=== PATIENT | female | born 1960 | race Caucasian/White ===

== ENCOUNTER → 2018-08-11 | Outpatient (CLI) | payer MEDICARE, OTHER ==
[~2018-08-11] MED LIST: Adipex-P37.5 MG; BIOTIN-D1 GM; Bactrim Ds Tab1 EACH PO; CALCAVITDA; CENTRUM SILVER1 EAC3; CYCL10 PO; ESTROVEN 155 M155 MG; FURO20; GLUCOSAMINE CH1 EAC1; IBUP600; IBUP600 PO; Keflex500 MG PO; MEGARED OMEGA-1 EAC1; PROBIOTIC1 EAC1; Percocet 5-3251 EACH PO; Potassium99 MG
== END | disposition home or self-care (01) ==
LOC: LAB SHORT 15:12 → PLD 15:12
DX: A63.0 Anogenital (venereal) warts (principal)
CPT/HCPCS: 88305

== ENCOUNTER → 2018-12-16 | Outpatient (CLI) | payer MEDICARE, OTHER ==
[2018-12-16 12:19] LABS: Source, Urine Clean Catch
[2018-12-16 15:39] LABS: Bilirubin, Urine Neg (Neg); Blood, Urine 1+ (Neg); Glucose Qualitative, Urine Neg (Neg); Ketones, Urine Neg (Neg); Leukocyte Esterase, Urine 1+ (Neg); Nitrite, Urine Neg (Neg); Protein, Urine Neg (Neg); Urobilinogen, Urine NORM (Normal)
[2018-12-16 15:55] LABS: Appearance, Urine Turbid (Clear); Color, Urine Yellow (P-Yellow)
[2018-12-16 15:57] LABS: Amorphous Heavy (0-Heavy); Bacteria Few /hpf; Red Blood Cells, Urine 0-2 /hpf (0-2); Squamous Epithelial Cells Mod /hpf (Few)
== END | disposition home or self-care (01) ==
LOC: LAB 12:08 → LAB SHORT 12:08
PROVIDERS: Obstetrics & Gynecology
DX: R30.0 Dysuria (principal)
CPT/HCPCS: 81001

== ENCOUNTER → 2019-09-21 | Outpatient (CLI) | payer MEDICARE, OTHER | END | disposition home or self-care (01) | LOC: LAB SHORT 10:55 → LAB UCHC 10:55 | DX: R07.0 Pain in throat (principal) | CPT/HCPCS: 87081; 87147 ==

== ENCOUNTER → 2020-07-18 | Outpatient (CLI) | payer MEDICARE, OTHER ==
[2020-07-18 12:16] LABS: Source, Urine Clean Catch
[2020-07-18 13:52] LABS: Bacteria Few /hpf; Mucus Light (0-Heavy); Red Blood Cells, Urine Not Seen /hpf (0-2); Squamous Epithelial Cells Mod /hpf (Few); White Blood Cells, Urine 0-2 /hpf (0-5)
[2020-07-19 10:56] LABS: Candida species (DNA Probe) Negative (NEGATIVE); G. vaginalis (DNA Probe) Positive (NEGATIVE); T. vaginalis (DNA Probe) Negative (NEGATIVE)
== END | disposition home or self-care (01) ==
LOC: LAB SHORT 11:24
PROVIDERS: Advanced Practice Midwife
DX: N76.0 Acute vaginitis (principal); R30.0 Dysuria
CPT/HCPCS: 81015; 87086; 87480; 87510; 87660

== ENCOUNTER → 2021-01-26 | Outpatient (CLI) | payer MEDICARE, OTHER ==
[2021-01-30 15:10] LABS: HPV 16 Negative (Negative); HPV 18 Negative (Negative); HPV OTHER HR TYPES Negative (Negative)
== END | disposition home or self-care (01) ==
LOC: LAB SHORT 09:45
PROVIDERS: Obstetrics & Gynecology
DX: Z01.419 Encounter for gynecological examination (general) (routine) without abnormal findings (principal)
CPT/HCPCS: 87624; G0123

== ENCOUNTER → 2021-03-22 | Outpatient (CLI) | payer MEDICARE, OTHER | END | disposition home or self-care (01) | LOC: LAB 13:24 → LAB SHORT 13:24 | DX: A63.0 Anogenital (venereal) warts (principal) | CPT/HCPCS: 88305 ==

== ENCOUNTER 2022-12-24 13:30 | Inpatient (IN) | payer MEDICARE, OTHER ==
[2022-12-24] VITALS (13 sets, daily range): BP systolic 106–184; BP diastolic 59–82
[~2022-12-24] VITALS: Ht 160 cm; Wt 151.0 kg
[~2022-12-24 13:30] MED LIST changes: +CVS SPECTRAVIT1 EA12 PO; +POTA10T PO; +Prinivil10 MG PO
[2022-12-24 15:33] LABS: BASOPHILS ABSOLUTE AUTO 0.03 K/mm3 (0.00-0.23); BASOPHILS PERCENT AUTO 1 % (0-2); EOSINOPHILS ABSOLUTE AUTO 0.06 K/mm3 (0.00-0.68); EOSINOPHILS PERCENT AUTO 1 % (0-6); Hematocrit 40.4 % (33.0-51.0); Hemoglobin 13.2 g/dL (11.5-16.0); IMMATURE GRAN ABSOLUTE AUTO 0.01 K/mm3 (0.00-0.10); IMMATURE GRAN PERCENT AUTO 0 % (0-1); LYMPHOCYTES ABSOLUTE AUTO 1.52 K/mm3 (0.84-5.20); LYMPHOCYTES PERCENT AUTO 27 % (21-46); MONOCYTES ABSOLUTE AUTO 0.45 K/mm3 (0.16-1.47); MONOCYTES PERCENT AUTO 8 % (4-13); Mean Corpuscular HGB 29.7 pg (26.0-34.0); Mean Corpuscular HGB Conc 32.7 g/dL (31.5-36.5); Mean Corpuscular Volume 91 fL (80-100); NEUTROPHILS ABSOLUTE AUTO 3.47 K/mm3 (1.96-9.15); NEUTROPHILS PERCENT AUTO 63 % (41-73); Platelet Count 254 K/mm3 (150-400); RDW Standard Deviation 46.5 fL (35.1-46.3); Red Blood Cell Count 4.44 M/mm3 (3.80-5.20); White Blood Cell Count 5.54 K/mm3 (4.00-11.30)
[2022-12-24 16:04] LABS: Albumin, Blood 3.5 g/dL (3.4-5.0); Albumin/Globulin Ratio 0.9 (0.8-1.8); Bilirubin, Total 0.5 mg/dL (0.1-1.0); Bun/Creatinine Ratio 17.7 (12.0-20.0); Calcium, Blood 9.3 mg/dL (8.5-10.1); Creatinine, Blood 0.85 mg/dL (0.40-1.00); Globulin, Blood 4.1 g/dL (2.2-4.0); Potassium, Blood 4.1 mmol/L (3.5-5.5); Total Protein, Blood 7.6 g/dL (6.4-8.2)
[2022-12-24 16:25] LABS: Thyroid Stimulating Hormone 2.16 uIU/mL (0.360-4.800)
--- NOTE | 2022-12-24 18:48 | NUR ---
PT ARRIVAL... PT ARRIVED TO THE UNIT AT 1740. PT IS ADMITTED WITH 3RD DEGREE HB WITH RATE IN THE HIGH 30'S (36-38). PT'S BP IS STABLE WITH SBPs IN THE 150'S-170'S. PT DENIES ANY CHEST PAIN/PRESSURE SOB OR N/V. PT DOES C/O OF A HEADACHE AND FATIGUE. PT IS A&Ox4. PT IS ON RA WITH O2 SATS >95% L/S CLEAR T/O. BT PRESENT AND NORMOACTIVE. PT HAS LYMPHEDEMA TO HER BLE, PT C/O OF PAIN TO HER BLE MORE ON THE RIGHT THAN THE LEFT. PUREWICK PLACED. PLAN IS FOR PT TO GET A PACER IN THE AM UNLESS THE PT BECOMES UNSTABLE THEN DR. DOOLEY WILL PLACE THE PACER TONIGHT. CALL LIGHT IN REACH WILL CONTINUE TO MONITOR UNTIL REPORT IS GIVEN TO THE ONCOMING RN.
[2022-12-25] VITALS (37 sets, daily range): BP systolic 91–185; BP diastolic 52–102
[2022-12-25 04:40] LABS: BASOPHILS ABSOLUTE AUTO 0.02 K/mm3 (0.00-0.23); BASOPHILS PERCENT AUTO 0 % (0-2); EOSINOPHILS PERCENT AUTO 2 % (0-6); Hematocrit 37.3 % (33.0-51.0); Hemoglobin 12.1 g/dL (11.5-16.0); IMMATURE GRAN ABSOLUTE AUTO 0.01 K/mm3 (0.00-0.10); IMMATURE GRAN PERCENT AUTO 0 % (0-1); LYMPHOCYTES ABSOLUTE AUTO 1.75 K/mm3 (0.84-5.20); LYMPHOCYTES PERCENT AUTO 38 % (21-46); MONOCYTES ABSOLUTE AUTO 0.41 K/mm3 (0.16-1.47); MONOCYTES PERCENT AUTO 9 % (4-13); Mean Corpuscular HGB 29.2 pg (26.0-34.0); Mean Corpuscular HGB Conc 32.4 g/dL (31.5-36.5); Mean Corpuscular Volume 90 fL (80-100); Mean Platelet Volume 10.4 fL (9.1-12.4); NEUTROPHILS ABSOLUTE AUTO 2.31 K/mm3 (1.96-9.15); NEUTROPHILS PERCENT AUTO 50 % (41-73); Platelet Count 248 K/mm3 (150-400); RDW Coefficient Variation 13.9 % (11.7-14.2); RDW Standard Deviation 45.9 fL (35.1-46.3); Red Blood Cell Count 4.15 M/mm3 (3.80-5.20)
[2022-12-25 04:47] LABS: Creatinine, Blood 0.79 mg/dL (0.40-1.00); Potassium, Blood 3.7 mmol/L (3.5-5.5)
--- NOTE | 2022-12-25 06:40 | NUR ---
PATIENT AOX4. 3RD DEGREE HEART BLOCK. HYPERTENSIVE WITH SYS 140-170. ROOM AIR. NPO SINCE 0000. PUREWICK IN PLACE.
--- NOTE | 2022-12-25 11:27 | NUR ---
ASSUMED CARE OF PATIENT.
--- NOTE | 2022-12-25 12:13 | NUR ---
JIMI HAS BEEN RESTING ON AND OFF THROUGHOUT THE MORNING. SHE WAS GIVEN THE HIBICLENS BATH PER ORDER. SHE IS ABLE TO HELP ASSIST WITH SOME MOVEMENT. SHE IS UNABLE TO MOVE HER LEGS OR BEND HER KNEES R/T THE LYMPHEDEMA. SHE IS USING THE PUREWICK, WHICH SHE HAS BEEN CLEANED/BATHED AND A NEW DEVICE PLACED. SHE CONTINUES ON 100ML/HR OF NS. SHE IS COMMUNICATING USING HER OWN CELL PHONE. SHE HAS C/O HEADACHE WITH HER INCREASE IN BLOOD PRESSURE. SHE SAYS THIS IS NOT NEW. THE TYLENOL HAS STARTED TO HELP SOME. PT CONTINUES TO BE IN COMPLETE HEART BLOCK WITH RATE IN THE 30'S.
--- NOTE | 2022-12-25 18:14 | NUR ---
END OF SHIFT SUMMARY: NEURO: A&OX4. WEAK IN THE EXTREMITIES AT BASILINE. PERRLA. RESP: LUNG SOUNDS CLEAR THROUGHOUT. CARDIO: PT IS AN BRADYCARDIC IN THE 30'S WITH A 3RD DEGREE HEART BLOCK AND HYPERTENSIVE. PT WENT TO CERTIFIED NURSE THIS AFTERNOON FOR PACEMAKER PLACEMENT. GI: NO BM TODAY : PUREWICK IN PLACE DUE TO PT BEING ON BEDREST. SKIN: NO NEW SKIN BREAKDOWN. LINES: 20G IV IN RAC, POWERGLIDE IRVING.
--- NOTE | 2022-12-25 21:12 | NUR ---
ASSESSMENT/ASSUMED CARE PT ARRIVED BACK FROM [facility] AT 2022 VIA BED. PT AWAKE A&O. REPOSITIONED AND NEW PURWICK PLACED. LEFT CHEST WALL DRSG INTACT, NO BLEEDING NOTED. RECEIVED ORDERS FROM DR DOUGHERTY. PT C/O NECK PAIN 11/04 "PULLING". LUNGS CLEAR BUT DECREASED ON ROOMAIR. RESP EVEN AND NONLABORED. SPO2 GREATER THAN 90. HEART RATE 100% PACED WITH A RATE IN THE 80'S. BT+ DENIES N/V. REQUESTING FOOD. "I DIDN'T GET TO EAT DINNER". PT ON CARDIAC DIET WITH BRING FOOD. 4+ EDEMA TO LOWER EXT. PT USING PHONE TO CALL FAMILY. SLING PLACED TO LEFT ARM AND REMINDED PT NOT TO RAISE ARM ABOVE SHOULDER OR SHE COULD DISPLACE PACER LEADS. PT EXPRESSED UNDERSTANDING. POWER GLIDE TO LEFT UPPER ARM NS RESTARTED AT 100 ML/HR. SITE CLEAR, UNABLE TO DRAW BLOOD, FLUSHES WITHOUT DIFFICULTY. IV TO RIGHT AC SALINE LOCKED, SITE CLEAR.
[2022-12-26] VITALS (19 sets, daily range): BP systolic 130–169; BP diastolic 61–98
--- NOTE | 2022-12-26 00:10 | NUR ---
PT RESTING QUIELTY. MOVING SELF AROUND IN BED WITH MIN ASSIST. LEFT CHEST WALL SITE CLEAR, NO BLEEDING NOTED. PT DENIES PAIN OR DISCOMFORT.
--- NOTE | 2022-12-26 06:08 | NUR ---
SHIFT SUMMARY PT AWAKE SITTING UP IN BED PLAYING GAMES ON PHONE. C/O PAIN 02/03 "ALL OVER". REFUSING FENTANYL STATES,"IT'S BETTER THAN IT WAS, I'LL WAIT UNTIL I CAN HAVE TYLENOL AGAIN". LEFT CHEST WALL SITE STABLE, NO BLEEDING. VSS. POSSIBLE STATUS CHANGE OR DISCHARGE TO HOME TODAY. REPORT TO ON COMING NURSE
--- NOTE | 2022-12-26 07:16 | NUR ---
ASSUMED CARE OF PATIENT.
[2022-12-26] MEDS ORDERED: ACET325 PO (11:42)
[2022-12-26] MEDS ORDERED: METO50ER PO (11:44)
[2022-12-26] MEDS ORDERED: VISBIOME 112.51 EACH PO (11:45)
[2022-12-26] MEDS ORDERED: CEPH500 PO (11:46)
--- NOTE | 2022-12-26 13:31 | NUR ---
DISCHARGE SUMMARY: WENT OVER DISCHARGE WITH PATIENT. ANY QUESTIONS AND CONCERNS WERE ADDRESSES. LINES WERE PULLED AND PT WAS ASSISTED WITH GETTING DRESSES. PT WAS TRANSPORTED TO CAR VIS WHEEL CHAIR. PTS WAS ASSISTED INTO THE CAR WHICH WAS DRIVEN BY HER FRIEND.
== END 2022-12-26 13:30 | disposition home or self-care (01) | DRG 243 ==
LOC: ER 13:30 → ICUW 13:31
PROVIDERS: Emergency Medicine; Student in an Organized Health Care Education/Training Program; ADMIT Student in an Organized Health Care Education/Training Program
PROC: 0JH606Z Insertion of Pacemaker, Dual Chamber into Chest Subcutaneous Tissue and Fascia, Open Approach (ICD-10-PCS; principal; 2022-12-25)
PROC: 02H63JZ Insertion of Pacemaker Lead into Right Atrium, Percutaneous Approach (ICD-10-PCS; 2022-12-25)
PROC: 02HK3JZ Insertion of Pacemaker Lead into Right Ventricle, Percutaneous Approach (ICD-10-PCS; 2022-12-25)
DX: I44.2 Atrioventricular block, complete (principal); Z68.43 Body mass index [BMI] 50.0-59.9, adult; I10 Essential (primary) hypertension; E66.01 Morbid (severe) obesity due to excess calories; I89.0 Lymphedema, not elsewhere classified; M17.0 Bilateral primary osteoarthritis of knee; G47.33 Obstructive sleep apnea (adult) (pediatric); G89.29 Other chronic pain; R73.9 Hyperglycemia, unspecified; R73.03 Prediabetes; I44.7 Left bundle-branch block, unspecified; S00.81XA Abrasion of other part of head, initial encounter; X58.XXXA Exposure to other specified factors, initial encounter; Z79.811 Long term (current) use of aromatase inhibitors; Z79.899 Other long term (current) drug therapy; Z98.51 Tubal ligation status; Z98.890 Other specified postprocedural states; Z86.16 Personal history of COVID-19; Z86.19 Personal history of other infectious and parasitic diseases; Z90.710 Acquired absence of both cervix and uterus; Z91.199 Patient's noncompliance with other medical treatment and regimen due to unspecified reason
CPT/HCPCS: 33228; 71045; 71046; 76937; 80048; 80053; 83036; 83735; 84443; 85025; 93005; 93010; 99152; 99153; 99285-25; A9270; C1751; C1769; C1781; C1785; C1894; C1898; J0690; J1644; J2250; J3010; J7030; J7040